=== PATIENT | female | born 1960 ===

== ENCOUNTER 2017-04-30 22:06 | Emergency (ER) | payer OTHER ==
[2017-04-30 22:07] VITALS: BMI 31.1
[2017-04-30 22:59] VITALS: BP 115/78; PULSE 92; RESP 18; TEMP 99.1; O2SAT 97
[2017-05-01] MEDS ORDERED: MethylPREDNISolone Depo 40 mg/ml Inj IM STA (00:03)
--- NOTE | 2017-05-01 00:27 | ED PDOC ---
Arrival/HPI - General Chief Complaint: Lower Extremity Problem/Injury Time Seen by Provider: 04/30/17 23:28 Historian: Patient - History of Present Illness Narrative History of Present Illness (Text): 05/01/17 00:23 A 57 year old female, with no significant past medical history, presents to the emergency department for a complaint of left achilles tendon pain. The patient notes that she has been experiencing this pain for the past 2 weeks. She notes that she has been using a cane to walk around because the pain makes it difficult for her to ambulate. The patient denies fevers, chills, headache, dizziness, chest pain, shortness of breath, dyspnea on exertion, cough, abdominal pain, nausea, vomiting, diarrhea, back pain, neck pain, urinary/bowel changes, or any other complaint. Time/Duration: Other (2 weeks) Symptom Onset: Sudden Symptom Course: Unchanged Activities at Onset: Rest, Light Context: Home Past Medical History - Provider Review Nursing Documentation Reviewed: Yes - Infectious Disease Hx of Infectious Diseases: None - Cardiac Hx Cardiac Disorders: No - Pulmonary Hx Respiratory Disorders: No - Neurological Hx Neurological Disorder: No - HEENT Hx HEENT Disorder: No - Renal Hx Renal Disorder: No - Endocrine/Metabolic Hx Endocrine Disorders: No - Hematological/Oncological Hx Blood Disorders: Yes Hx Anemia: Yes - Integumentary Hx Dermatological Disorder: No - Musculoskeletal/Rheumatological Hx Arthritis: Yes Hx Back Pain: Yes Hx Herniated Disk: Yes - Gastrointestinal Hx Gastrointestinal Disorders: Yes Other/Comment: RECTAL BLEEDING - Genitourinary/Gynecological Hx Genitourinary Disorders: No - Psychiatric Hx Psychophysiologic Disorder: Yes Hx Anxiety: Yes Hx Depression: Yes Hx Substance Use: No - Surgical History Other/Comment: spinal surgery - Anesthesia Hx Anesthesia: Yes Hx Anesthesia Reactions: No Family/Social History - Physician Review Nursing Documentation Reviewed: Yes Family/Social History: No Known Family HX Smoking Status: Heavy Smoker > 10 Cigarettes Daily Hx Alcohol Use: Yes Frequency of alcohol use: Socially Hx Substance Use: No Allergies/Home Meds Allergies/Adverse Reactions: Allergies No Known Allergies Allergy (Verified 05/01/17 01:02) Review of Systems - Physician Review All systems were reviewed & negative as marked: Yes - Review of Systems Constitutional: absent: Fevers, Night Sweats Respiratory: absent: SOB, Cough Cardiovascular: absent: Chest Pain, VÁZQUEZ Gastrointestinal: absent: Abdominal Pain, Stool Changes, Diarrhea, Nausea, Vomiting Genitourinary Female: absent: Urine Output Changes Musculoskeletal: Other (Left achilles tendon pain for 2 weeks). absent: Back Pain, Neck Pain Neurological: absent: Headache, Dizziness Physical Exam Vital Signs Reviewed: Yes Vital Signs Temp Pulse Resp BP Pulse Ox 04/30/17 22:58 99.1 F 92 H 18 115/78 97 Temperature: Afebrile Blood Pressure: Normal Pulse: Regular Respiratory Rate: Normal Appearance: Positive for: Well-Appearing, Non-Toxic, Comfortable Pain Distress: None Mental Status: Positive for: Alert and Oriented X 3 - Systems Exam Head: Present: Atraumatic, Normocephalic Pupils: Present: PERRL Extroacular Muscles: Present: EOMI Conjunctiva: Present: Normal Mouth: Present: Moist Mucous Membranes Neck: Present: Normal Range of Motion Respiratory/Chest: Present: Clear to Auscultation, Good Air Exchange. No: Respiratory Distress, Accessory Muscle Use Cardiovascular: Present: Regular Rate and Rhythm, Normal S1, S2. No: Murmurs Abdomen: Present: Normal Bowel Sounds. No: Tenderness, Distention, Peritoneal Signs Back: Present: Normal Inspection Upper Extremity: Present: Normal Inspection. No: Cyanosis, Edema Lower Extremity: Present: Tenderness (Tender and inflammed achilles tendon on left foot. ) Neurological: Present: GCS=15, CN II-XII Intact, Speech Normal Skin: Present: Warm, Dry, Normal Color. No: Rashes Psychiatric: Present: Alert, Oriented x 3, Normal Insight, Normal Concentration Medical Decision Making ED Course and Treatment: 05/01/17 00:28 Impression: A 57 year old female presents to the emergency department for a complaint of 2 week duration left Achilles tendon pain. Plan: -- Toradol and DEPO-Medrol -- Reassess and disposition Prior Visits: Notes and results from previous visits were reviewed. Patient was last seen in the emergency department on 05/17/2016. The patient was seen in the emergency department complaining of lower back pain. The patient was discharged home. Progress Notes: - Medication Orders Current Medication Orders: Discontinued Medications Ketorolac Tromethamine (Toradol) 60 mg IM STAT STA Stop: 05/01/17 00:04 Last Admin: 05/01/17 00:45 Dose: 60 mg MAR Pain Assessment Document 05/01/17 00:45 OCS (Rec: 05/01/17 00:46 OCS [id number]) Pain Reassessment Is this a pain reassessment? Yes Sleep Is patient sleeping during reassessment? No Presence of Pain Presence of Pain Yes IM Administration Charges Document 05/01/17 00:45 OCS (Rec: 05/01/17 00:46 OCS [id number]) Charges for Administration # of IM Administrations 1 Methylprednisolone Acetate (Depo-Medrol) 80 mg IM STAT STA Stop: 05/01/17 00:04 Last Admin: 05/01/17 00:45 Dose: 80 mg IM Administration Charges Document 05/01/17 00:45 OCS (Rec: 05/01/17 00:45 OCS [id number]) Injection Site MAR Injection Site Left Deltoid Charges for Administration # of IM Administrations 1 - Scribe Statement The provider has reviewed the documentation as recorded by the Scribe Paris Patel Provider Scribe Attestation: All medical record entries made by the Scribe were at my direction and personally dictated by me. I have reviewed the chart and agree that the record accurately reflects my personal performance of the history, physical exam, medical decision making, and the department course for this patient. I have also personally directed, reviewed, and agree with the discharge instructions and disposition. Disposition/Present on Arrival - Present on Arrival Any Indicators Present on Arrival: No History of DVT/PE: No History of Uncontrolled Diabetes: No Urinary Catheter: No History of Decub. Ulcer: No History Surgical Site Infection Following: None - Disposition Have Diagnosis and Disposition been Completed?: Yes Diagnosis: Achilles tendinitis Disposition: HOME/ ROUTINE Disposition Time: 00:35 Patient Plan: Discharge Discharge Instructions (ExitCare): Achilles Tendinitis (ED) Additional Instructions: Vivina, Sorry this hurts so bad. Please make sure to follow up with orthopedics, Dr Law [phone]. Meanwhile, take the motrin weather you think it is helping or not. Return to us if worse or new symptoms. The Percocet is for bad pain, dont take it if you do not need it. It will upset your stomach, that is what the zofran is for. Best- Dr. Alfredo Alonso Prescriptions: Ibuprofen [Motrin Tab] 800 mg PO TID #90 tab Ondansetron ODT [Zofran ODT] 8 mg PO TID #30 odt oxyCODONE/Acetaminophen [Percocet 5/325 mg Tab] 1 ea PO QID #20 tab Referrals: Hayden Myers MD [Primary Care Provider] - Follow up with primary Forms: [employer] ([place])
== END 2017-05-01 00:55 | disposition home or self-care (01) ==
LOC: ED 22:06
DX: M76.62 Achilles tendinitis, left leg (principal); F17.210 Nicotine dependence, cigarettes, uncomplicated
CPT/HCPCS: 96372; 99283; J1030; J1885